=== PATIENT | male | born 1990 | race Caucasian/White ===

== ENCOUNTER 2022-08-17 08:24 | Emergency (ER) | payer OTHER ==
[~2022-08-17] VITALS: Ht 185.4 cm; Wt 120.2 kg
[2022-08-17] MEDS ORDERED: ZYRTEC10 M2 PO (08:34)
[2022-08-17 09:00] VITALS: BP 108/72
[2022-08-17] MEDS ORDERED: GUAI600T33 PO ×2 (09:32→14:12)
[2022-08-17] MEDS ORDERED: DOXY100 PO ×2 (09:32→14:12)
== END 2022-08-17 09:57 | disposition home or self-care (01) ==
LOC: ER 08:24
DX: J20.9 Acute bronchitis, unspecified (principal); F17.200 Nicotine dependence, unspecified, uncomplicated; Z88.1 Allergy status to other antibiotic agents
CPT/HCPCS: 71046; 99283-25

== ENCOUNTER 2024-12-03 10:18 | Emergency (ER) | payer OTHER ==
[~2024-12-03] VITALS: Ht 188 cm; Wt 117.9 kg
[~2024-12-03 10:18] MED LIST: DOXY100 PO; GUAI600T33 PO; ZYRTEC10 M2 PO
[2024-12-03 12:43] VITALS: BP 130/84
[2024-12-03 13:12] LABS: Source, Urine Clean Catch
[2024-12-03 13:16] LABS: Bilirubin, Urine Neg (Neg); Color, Urine Yellow (P-Yellow); Glucose Qualitative, Urine Neg (Neg); Ketones, Urine Neg (Neg); Leukocyte Esterase, Urine Neg (Neg); Protein, Urine Neg (Neg); Specific Gravity, Urine 1.010 (1.003-1.022); Urobilinogen, Urine NORM (Normal)
[2024-12-03] MEDS ORDERED: OXYC5 PO (13:49)
[2024-12-03] MEDS ORDERED: BISA5EC PO (13:49)
[2024-12-03] MEDS ORDERED: METPRE4DP PO (13:49)
== END 2024-12-03 13:54 | disposition home or self-care (01) ==
LOC: ER 10:18
PROVIDERS: Physician Assistant
DX: M51.16 Intervertebral disc disorders with radiculopathy, lumbar region (principal); M51.17 Intervertebral disc disorders with radiculopathy, lumbosacral region; Z79.899 Other long term (current) drug therapy
CPT/HCPCS: 72100; 81003; 99283-25